=== PATIENT | female | born 1990 | race Caucasian/White ===

== ENCOUNTER 2017-04-05 12:17 | Emergency (ER) | payer OTHER, MEDICAID ==
[~2017-04-05] VITALS: Ht 162.6 cm; Wt 95.0 kg
[2017-04-05 12:19] VITALS: BP 119/71; PULSE 79; RESP 14; TEMP 98.5; O2SAT 98
== END 2017-04-05 14:26 | disposition left against medical advice (07) ==
LOC: NED 12:17
DX: Z03.89 Encounter for observation for other suspected diseases and conditions ruled out (principal)
CPT/HCPCS: 84703; 99281

== ENCOUNTER 2017-04-24 20:42 | Emergency (ER) | payer OTHER, MEDICAID ==
[~2017-04-24] VITALS: Ht 162.6 cm; Wt 88.0 kg
[2017-04-24 20:52] VITALS: BP 136/74; PULSE 96; RESP 18; TEMP 98.1; O2SAT 99
[2017-04-24] MEDS ORDERED: SODIUM CHLOR 0.9% 1000 ML INJ 1,000 ML IV SCH (20:59)
[2017-04-24] MEDS ORDERED: ALUMINUM/MAGNESIUM/SIMETH 30 ML CUP PO ONE (21:00)
[2017-04-24] MEDS ORDERED: SODIUM CHLORIDE 0.9% FLUSH 10 ML FLUSH IV FLUSH PRN (21:00)
[2017-04-24] MEDS ORDERED: ONDANSETRON HCL 4 MG/2 ML VIAL IVP ONE (21:00)
[2017-04-24] MEDS ORDERED: LIDOCAINE VISCOUS 2% SOLN 15 ML UDC PO ONE (21:00)
--- NOTE | 2017-04-24 21:02 | PD ---
HPI Chief Complaint: Abdominal Pain Time Seen by Provider: 20:59 Travel History International Travel<30 days: No Contact w/Intl Traveler<30days: No Traveled to known affect area: No History of Present Illness HPI 26-year-old female with history of bipolar disorder supposed to be on Depakote, however she admits to not taking this medication, here for evaluation of abdominal pain. The patient reports having epigastric abdominal pressure since October of this year, however has been worsening over the last week or so. Pain is moderate, constant, no modifying factors, nonradiating. She denies history of abdominal surgeries. No vaginal discharge or bleeding. No urinary symptoms. No fevers or chills. No nausea or vomiting. No diarrhea. She tells me that she has taken several tests over the last couple of weeks which have all been negative. She is sexually active with one partner whom she states is her fianc. PFSH Past Medical History Bipolar Disorder: Yes Diabetes: No Patient Takes Glucophage: No Diminished Hearing: No Immunizations Current: Yes Tetanus Vaccination: < 5 Years Influenza Vaccination: No ?: Unknown LMP: 03/2017 Past Surgical History Tonsillectomy: Yes Social History Alcohol Use: No Tobacco Use: No Substance Use: No Allergies-Medications (Allergen,Severity, Reaction): Coded Allergies: methylphenidate (Verified Allergy, Unknown, 04/24/17) Reported Meds & Prescriptions Reported Meds & Active Scripts Active No Active Prescriptions or Reported Medications Review of Systems Except as stated in HPI: all other systems reviewed are Neg Physical Exam Narrative GENERAL: Well-developed, well-nourished, comfortable, no apparent distress. SKIN: Focused skin assessment warm/dry. HEAD: Atraumatic. Normocephalic. EYES: Pupils equal and round. No scleral icterus. No injection or drainage. ENT: Mucous membranes pink and moist. NECK: Trachea midline. No JVD. CARDIOVASCULAR: Regular rate and rhythm. No murmur appreciated. RESPIRATORY: No accessory muscle use. Clear to auscultation. Breath sounds equal bilaterally. GASTROINTESTINAL: Abdomen soft, nondistended. Mild mid abdominal and epigastric tenderness without peritoneal signs. Rest of abdomen is soft and nontender. Negative Hobbs sign. No McBurney's point tenderness. No hernias. Normal bowel sounds. MUSCULOSKELETAL: No obvious deformities. No clubbing. No cyanosis. No edema. NEUROLOGICAL: Awake and alert. No obvious cranial nerve deficits. Motor grossly within normal limits. Normal speech. PSYCHIATRIC: Appropriate mood and affect; insight and judgment normal. Data Data Last Documented VS Vital Signs Date Time Temp Pulse Resp B/P (MAP) Pulse Ox O2 Delivery O2 Flow Rate FiO2 04/24/17 20:52 98.1 96 18 136/74 (94) 99 Orders Orders Beta Hcg (Quant/Titer) (04/24/17 20:59) Complete Blood Count With Diff (04/24/17 20:59) Comprehensive Metabolic Panel (04/24/17 20:59) Lipase (04/24/17 20:59) Prothrombin Time / Inr (Pt) (04/24/17 20:59) Act Partial Throm Time (Ptt) (04/24/17 20:59) Urinalysis - C+S If Indicated (04/24/17 20:59) Ct Abd/Pel W Iv Contrast(Rout) (04/24/17 20:59) Iv Access Insert/Monitor (04/24/17 20:59) Ecg Monitoring (04/24/17 20:59) Oximetry (04/24/17 20:59) Ondansetron Inj (Zofran Inj) (04/24/17 21:00) Sodium Chlor 0.9% 1000 Ml Inj (Ns 1000 M (04/24/17 20:59) Sodium Chloride 0.9% Flush (Ns Flush) (04/24/17 21:00) Al-Mag Hy-Si 40-40-4 Mg/Ml Liq (Mag-Al P (04/24/17 21:00) Lidocaine 2% Viscous (Xylocaine 2% Visco (04/24/17 21:00) Iohexol 350 Inj (Omnipaque 350 Inj) (04/24/17 23:29) Labs Laboratory Tests Test 04/24/17 21:03 04/24/17 21:13 04/24/17 22:15 Urine Color YELLOW Urine Turbidity CLEAR Urine pH 5.5 Urine Specific Scott 1.020 Urine Protein NEG mg/dL Urine Glucose (UA) NEG mg/dL Urine Ketones NEG mg/dL Urine Occult Blood NEG Urine Nitrite NEG Urine Bilirubin NEG Urine Urobilinogen LESS THAN 2.0 MG/DL Urine Leukocyte Esterase NEG Urine RBC 1 /hpf Urine WBC 1 /hpf Urine Squamous Epithelial Cells 2 /hpf Urine Mucus FEW /lpf Microscopic Urinalysis Comment CULT NOT INDICATED White Blood Count 11.3 TH/MM3 Red Blood Count 4.76 MIL/MM3 Hemoglobin 14.4 GM/DL Hematocrit 42.5 % Mean Corpuscular Volume 89.4 FL Mean Corpuscular Hemoglobin 30.3 PG Mean Corpuscular Hemoglobin Concent 33.9 % Red Cell Distribution Width 13.0 % Platelet Count 242 TH/MM3 Mean Platelet Volume 10.5 FL Neutrophils (%) (Auto) 65.4 % Lymphocytes (%) (Auto) 27.9 % Monocytes (%) (Auto) 5.8 % Eosinophils (%) (Auto) 0.5 % Basophils (%) (Auto) 0.4 % Neutrophils # (Auto) 7.4 TH/MM3 Lymphocytes # (Auto) 3.2 TH/MM3 Monocytes # (Auto) 0.7 TH/MM3 Eosinophils # (Auto) 0.1 TH/MM3 Basophils # (Auto) 0.0 TH/MM3 CBC Comment DIFF FINAL Differential Comment Prothrombin Time 10.2 SEC Prothromb Time International Ratio 0.9 RATIO Activated Partial Thromboplast Time 27.8 SEC Blood Urea Nitrogen 9 MG/DL Creatinine 0.61 MG/DL Random Glucose 87 MG/DL Total Protein 6.4 GM/DL Albumin 3.3 GM/DL Calcium Level 8.3 MG/DL Alkaline Phosphatase 76 U/L Aspartate Amino Transf (AST/SGOT) 21 U/L Alanine Aminotransferase (ALT/SGPT) 14 U/L Total Bilirubin 0.2 MG/DL Sodium Level 141 MEQ/L Potassium Level 3.9 MEQ/L Chloride Level 107 MEQ/L Carbon Dioxide Level 27.0 MEQ/L Anion Gap 7 MEQ/L Estimat Glomerular Filtration Rate 118 ML/MIN Lipase 250 U/L Human Chorionic Gonadotropin, Quant LESS THAN 1 MIU/ML [facility] Medical Decision Making Medical Screen Exam Complete: Yes Emergency Medical Condition: Yes Differential Diagnosis Gastritis, peptic ulcer disease, pancreatitis, hepatobiliary disease, colitis, appendicitis less likely, UTI, cystitis Narrative Course Vital signs show heart rate 96, blood pressure 136/74, pulse ox 99% on room air , oral temp of 98.1F. CBC: WBC 11.3, hemoglobin 14.4, hematocrit 42.5, platelets 242. CMP is unremarkable Lipase is 250 Beta hCG is negative UA is not suggestive of UTI. CT abdomen pelvis: CONCLUSION: 1. No evidence of acute abdominal or pelvic process. No masses are identified. 2. Indeterminate 3.3 cm mass in the right lobe of the liver. MRI is recommended for further evaluation if clinically indicated. The patient was made aware of all findings and provided a copy of her CT abdomen pelvis report. This 3.3 cm mass in the right lobe of the patient's liver can be further worked up as an outpatient, and the patient was advised on the importance of follow-up. The patient reports that her primary care physician is in [place] and she recently moved to this area in January of this year. I will give her the name of the [facility] with whom to follow- up with this week. The patient is otherwise resting comfortably and there are no peritoneal signs on her exam. I'll also give her the name of the GI doctor director of enterprise applications with whom to follow-up with this week. Patient was informed on when to return to the emergency department. She verbalizes understanding and agreement with plan. Diagnosis Primary Impression: Abdominal pain Qualified Codes: R10.13 - Epigastric pain Additional Impression: Liver mass, right lobe Referrals: Asher Le MD 3 days [employer] [facility] 3 days Primary Care Physician 3 days Additional Instructions: Follow-up with a primary care physician or in the [facility] this week. Follow-up with a knitting demonstrator Dr. Le or a knitting demonstrator of your choice this week. Return to the emergency department for worsening symptoms or any other concerns. Scripts No Active Prescriptions or Reported Meds Disposition: 01 DISCHARGE HOME Condition: Stable Jose Armando Lance MD Apr 24, 2017 21:02
[2017-04-24 21:34] LABS: AUTOMATED NEUTROPHIL # 7.4 TH/MM3 (1.8-7.7); BASOPHIL % 0.4 % (0.0-2.0); EOSINOPHIL # 0.1 TH/MM3 (0-0.4); EOSINOPHIL % 0.5 % (0.0-4.0); HEMATOCRIT 42.5 % (35.0-46.0); HEMO FLAGS DIFF FINAL; LYMPH % 27.9 % (9.0-44.0); LYMPHOCYTE # 3.2 TH/MM3 (1.0-4.8); MEAN CELL VOLUME 89.4 FL (80.0-100.0); MEAN CORPUSCULAR HEMOGLOBIN 30.3 PG (27.0-34.0); MEAN CORPUSCULAR HGB CONC 33.9 % (32.0-36.0); MONO % 5.8 % (0.0-8.0); NEUT % 65.4 % (16.0-70.0); PLATELET COUNT 242 TH/MM3 (150-450); RED BLOOD COUNT 4.76 MIL/MM3 (4.00-5.30); WHITE BLOOD COUNT 11.3 TH/MM3 (4.0-11.0)
[2017-04-24 21:37] LABS: BLOOD, URINE NEG (NEG); COMMENT (UR) CULT NOT INDICATED; CULTURE IF INDICATED CULT NOT INDICATED; GLUCOSE,URINE NEG (NEG); KETONE, URINE NEG (NEG); MUCUS URINE FEW /lpf (OCC); NITRITE,URINE NEG (NEG); PH, URINE 5.5 (5.0-8.5); SQUAMOUS EPITHELIAL CELL URINE 2 /hpf (0-5); URINE COLOR YELLOW (YELLW/STRAW)
[2017-04-24 21:47] LABS: APTT (PATIENT) 27.8 SEC (24.3-30.1); INTERNATIONAL NORMALIZED RATIO 0.9 RATIO; PROTHROMBIN TIME - PATIENT 10.2 SEC (9.8-11.6)
[2017-04-24 22:55] LABS: ALT (GPT) 14 U/L (10-53); ANION GAP 7 MEQ/L (5-15); AST (GOT) 21 U/L (15-37); CHLORIDE 107 MEQ/L (98-107); GLOMERULAR FILTRATION RATE 118 ML/MIN (>89); POTASSIUM 3.9 MEQ/L (3.5-5.1); SODIUM (NA) 141 MEQ/L (136-145)
[2017-04-24 22:56] LABS: BLOOD UREA NITROGEN 9 MG/DL (7-18)
[2017-04-24 22:59] LABS: ALKALINE PHOSPHATASE 76 U/L (45-117); BETA HCG QUANT LESS THAN 1 MIU/ML (0-5); TOTAL BILIRUBIN ADULT 0.2 MG/DL (0.2-1.0)
[2017-04-24] MEDS ORDERED: IOHEXOL 350 MG/ML 10 ML VIAL (for RAD DIAG) IVCONTRAST ONE (23:29)
--- NOTE | 2017-04-24 23:49 | RADRPT ---
EXAM DATE/TIME: 04/24/2017 23:17 [place] COMPARISON: No previous studies available for comparison. INDICATIONS : Abdominal pain x7 months. IV CONTRAST: 77 cc Omnipaque 350 (iohexol) IV ORAL CONTRAST: No oral contrast ingested. RADIATION DOSE: 10.29 CTDIvol (mGy) MEDICAL HISTORY : None SURGICAL HISTORY : Tonsillectomy. ENCOUNTER: Initial ACUITY: 7 - 11 months PAIN SCALE: 2/10 LOCATION: Bilateral abdomen TECHNIQUE: Volumetric scanning of the abdomen and pelvis was performed. Using automated exposure control and ad justment of the mA and/or kV according to patient size, radiation dose was kept as low as reasonably achievable to obtain optimal diagnostic quality images. DICOM format image data is available electro nically for review and comparison. FINDINGS: Examination of the lung bases demonstrates no abnormality. No pleural fluid is identified. No pulmona ry nodules are present. There is a 3.3 cm mass involving segment 7 of undetermined etiology. MRI is r ecommended for further evaluation if clinically indicated.. The spleen is normal in size and free of focal defects. The gallbladder and pancreas are unremarkable. No intrahepatic or extrahepatic ductal dilatation is seen. The adrenal glands and kidneys appear normal bilaterally. No hydronephrosis or ma ss lesions are identified. Examination of the pelvis demonstrates no evidence of free fluid or pelvic mass. No abnormally enlarg ed inguinal or retroperitoneal lymph nodes are present. The bladder is unremarkable. CONCLUSION: 1. No evidence of acute abdominal or pelvic process. No masses are identified. 2. Indeterminate 3.3 cm mass in the right lobe of the liver. MRI is recommended for further evaluatio n if clinically indicated. Ed Frey MD on April 24, 2017 at 23:44 Board Certified Radiologist. This report was verified electronically.
== END 2017-04-25 01:07 | disposition home or self-care (01) ==
LOC: NEPD 20:42
DX: R10.13 Epigastric pain (principal); R16.0 Hepatomegaly, not elsewhere classified; F31.9 Bipolar disorder, unspecified
CPT/HCPCS: 74177; 80053; 81001; 83690; 84702; 85025; 85610; 85730; 96361; 96374; 99285; J2405; J7030; Q9967